=== PATIENT | male | born 1990 | race Caucasian/White ===

== ENCOUNTER → 2021-04-07 | Outpatient (CLI) | payer OTHER ==
[~2021-04-07] MED LIST: FLEXERIL5 MG PO; NAPROSYN500 MG PO; NKHM PO
== END | disposition home or self-care (01) ==
LOC: LAB 00:37 → COVID19 12:30
PROVIDERS: ATTEND Internal Medicine
DX: Z11.52 Encounter for screening for COVID-19 (principal)